=== PATIENT | male | born 1970 | race Caucasian/White ===

== ENCOUNTER 2017-02-25 07:12 | Emergency (ER) | payer OTHER ==
[~2017-02-25] VITALS: Ht 180.3 cm; Wt 88.5 kg
[2017-02-25 08:08] LABS: BASOPHIL % 0.6 % (0-2); PLATELET COUNT 330 x10^3mcL (130-400); RED CELL DISTRIBUTION WIDTH 12.9 % (11.5-14.5)
[2017-02-25 08:10] LABS: CALCIUM 9.2 mg/dL (8.5-10.1); CARBON DIOXIDE 25.5 mmol/L (21-32); CHLORIDE SERUM 104 mmol/L (98-107); CREATININE SERUM 1.2 mg/dL (0.7-1.3); GFR1 > 60 mL/min; GLUCOSE SERUM 89 mg/dL (74-106); POTASSIUM SERUM 4.4 mmol/L (3.5-5.1); SODIUM SERUM 142 mmol/L (136-145)
[2017-02-25 08:16] LABS: ALKALINE PHOSPHATASE 71 U/L (46-116); ALT/SGPT 37 U/L (16-63); AST/SGOT 21 U/L (15-37); BILIRUBIN TOTAL 0.5 mg/dL (0.20-1.00); HDL CHOLESTEROL 45 mg/dL (40-60); PHOSPHOROUS 1.9 mg/dL (2.5-4.9); TOTAL PROTEIN, SERUM 7.1 g/dL (6.4-8.2); URIC ACID 6.7 mg/dL (3.5-7.2)
[2017-02-25 08:21] LABS: CHOLESTEROL 211 mg/dL (<200)
[2017-02-25 09:17] VITALS: BP 134/91
== END 2017-02-25 09:17 | disposition home or self-care (01) ==
LOC: ED 07:12
PROVIDERS: Emergency Medicine
DX: J06.9 Acute upper respiratory infection, unspecified (principal)
CPT/HCPCS: 83880; Q0092